=== PATIENT | male | born 1970 | race Caucasian/White ===

== ENCOUNTER 2016-10-28 09:10 | Emergency (ER) | payer OTHER ==
[2016-10-28 09:37] VITALS: BP 141/89; PULSE 86; RESP 20; TEMP 98.8; O2SAT 94
--- NOTE | 2016-10-28 09:38 | UCPHY ---
H & P Time Seen by Provider: 10/28/16 09:38 Patient Type: New HPI/ROS: CHIEF COMPLAINT: Cough and fever HISTORY OF PRESENT ILLNESS: Patient's got sick a month ago with similar symptoms. She was treated with azithromycin but did not get better. He did get a flu shot this year. Over the past week he has had a cough and feels congested and clogged up, not really improve with Mucinex. He has a sore throat and a bilateral frontal headache. Symptoms moderate associated with symptomatic subjective fever and chills. He is able to swallow and breathe okay. No neck stiffness. REVIEW OF SYSTEMS: Eye: no change in vision ENT: HPI, no ear symptoms Cardiac: no chest pain or syncope Pulmonary: HPI, no hemoptysis Abdomen: no vomiting, diarrhea, abdominal pain Musculoskeletal: no back pain or leg swelling Skin: no rash Neuro: HPI Constitutional: HPI : no urinary symptoms A comprehensive 10 point review of systems is otherwise negative aside from elements mentioned in the history of present illness. PAST MEDICAL HISTORY: Back and elbow surgery Social history: Nonsmoker, recent travel to [facility], not to developing country or [place] or [place]. General Appearance: Alert and conversant, cooperative. Eyes: No scleral icterus. ENT, Mouth: Normal mucous membranes. Normal pharynx without erythema or exudate , no trismus or stridor. Respiratory: Bilateral wheezing but speaks in full sentences, no rales or rhonchi or consolidation. No focal lung sounds. Cardiovascular: Regular rate and rhythm. Gastrointestinal: Abdomen is soft and non tender. Neurological: Alert and oriented x3. Normally conversant. Face symmetric, normal movement and sensation in all extremities. Skin: Scattered facial erythema but no facial swelling no urticaria or evidence of erysipelas. Musculoskeletal: No peripheral edema and no joint swelling. No calf tenderness. Normal range of motion of the neck without meningeal signs. Psychiatric: Not agitated. Emergency Department course/MDM: Patient presents with symptoms suggestive of influenza or other viral syndrome. He is wheezing but is afebrile with a normal oxygen saturation and I think the most reasonable thing is to treat with cough medication and albuterol, symptomatic. He is out of the window for influenza antiviral treatment. I considered pulmonary embolism and meningitis and pneumonia but I think those are all unlikely. Smoking Status: Never smoked Constitutional: Initial Vital Signs Temperature (C) 37.1 C 10/28/16 09:33 Heart Rate 86 10/28/16 09:33 Respiratory Rate 20 10/28/16 09:33 Blood Pressure 141/89 H 10/28/16 09:33 O2 Sat (%) 94 10/28/16 09:33 O2 Delivery Mode Room Air Allergies/Adverse Reactions: No Known Allergies Allergy (Unverified 10/28/16 09:37) Home Medications: Medication Instructions Recorded Albuterol Hfa Anes Only [Proair 2 puffs IH QID #1 mdi 10/28/16 Hfa Icu (*)] Benzonatate [Tessalon Pearles (RX)] 100 mg PO Q8 PRN #15 cap 10/28/16 Hydrocodone Bit/Homatropine 1 each PO HS PRN #10 tablet 10/28/16 [HYCODAN TABLET] Departure - Departure Disposition: Home, Routine, Self-Care Clinical Impression: Bronchospasm, Viral syndrome Condition: Good Instructions: Bronchospasm (ED) Referrals: Luca Myers MD [Primary Care Provider] - As per Instructions Prescriptions: Albuterol Hfa Anes Only [Proair Hfa Icu (*)] 2 puffs IH QID #1 mdi Benzonatate [Tessalon Pearles (RX)] 100 mg PO Q8 PRN #15 cap PRN Reason: Cough, Moderate Hydrocodone Bit/Homatropine [HYCODAN TABLET] 1 each PO HS PRN #10 tablet PRN Reason: Cough, Moderate - PQRS PQRS Measurement: na
== END 2016-10-28 10:00 | disposition home or self-care (01) ==
LOC: CED 09:10
DX: J98.01 Acute bronchospasm (principal); B34.9 Viral infection, unspecified
CPT/HCPCS: 99203-PO; G0463-PO

== ENCOUNTER → 2018-10-14 | Outpatient (CLI) | payer OTHER | LOC: BRMIMAGING 08:32 | PROVIDERS: ATTEND Family Medicine | DX: K76.0 Fatty (change of) liver, not elsewhere classified (principal); F10.10 Alcohol abuse, uncomplicated; G47.00 Insomnia, unspecified; Z72.0 Tobacco use | CPT/HCPCS: 76700-PO ==